=== PATIENT | female | born 1985 | race Two or more races ===

== ENCOUNTER 2020-02-23 20:29 | Emergency (ER) | payer OTHER ==
[~2020-02-23] VITALS: Ht 170.2 cm; Wt 81.6 kg
[2020-02-23] MEDS ORDERED: METF-440 GT (21:07)
[2020-02-23] MEDS ORDERED: ATOR80TA26 GT (21:07)
[2020-02-23] MEDS ORDERED: DULO60CA45 GT (21:07)
[2020-02-23] MEDS ORDERED: RIVA20TA GT (21:07)
[2020-02-23] MEDS ORDERED: LAMO250T2 GT (21:07)
[2020-02-23] MEDS ORDERED: [UNRECOGNIZED DRUG - REMARK] (21:07)
[2020-02-23] MEDS ORDERED: GABA600T GT (21:07)
[2020-02-23] MEDS ORDERED: POLY17PO4 GT (21:07)
[2020-02-23] MEDS ORDERED: REGULAR INSULIN (21:07)
[2020-02-23] MEDS ORDERED: LORA2TAB GT (21:07)
[2020-02-23] MEDS ORDERED: QUET300T2 GT (21:07)
[2020-02-23] MEDS ORDERED: [UNRECOGNIZED DRUG - OTHER] (21:07)
[2020-02-23] MEDS ORDERED: FAMO40TA71 GT (21:07)
[2020-02-23] MEDS ORDERED: ONDANSETRON ODT 4 MG TAB.RAPDIS SL ONE (21:30)
[2020-02-23] MEDS ORDERED: HYDROCODONE/APAP 10-325 MG TABLET PO ONE (21:30)
--- NOTE | 2020-02-23 21:36 | NUR ---
PT TO RADIALOGY
[2020-02-23] MEDS ORDERED: HYDROCODONE/APAP 10-325 MG TABLET ONE (21:38)
[2020-02-23] MEDS ORDERED: ONDANSETRON ODT 4 MG TAB.RAPDIS ONE (21:38)
[2020-02-23] MEDS ORDERED: ONDANSETRON 4 MG/2 ML VIAL IM ONE (22:00)
[2020-02-23] MEDS ORDERED: HYDROMORPHONE 1 MG/1 ML DISP.SYRIN IM ONE (22:00)
[2020-02-23] MEDS ORDERED: HYDROMORPHONE 1 MG/1 ML DISP.SYRIN ONE (22:06)
[2020-02-23] MEDS ORDERED: ONDANSETRON 4 MG/2 ML VIAL ONE (22:06)
--- NOTE | 2020-02-23 22:17 | NUR ---
patient unable to desiree PO medication, MD switched medication to IM route
--- NOTE | 2020-02-23 22:17 | NUR ---
urine sample sent to lab at this time
[2020-02-23 22:18] LABS: *BILIRUBIN,URIN NEGATIVE (NEGATIVE); *BLOOD, URINE NEGATIVE (NEGATIVE); *CLARITY,URINE CLEAR (CLEAR); *COLOR,URINE YELLOW (YELLOW); *KETONES,URINE NEGATIVE (NEGATIVE); *UROBILINOGEN,URINE 0.2 E.U./dl (NORMAL); LEUKOCYTE ESTERASE ,URINE 1+ (NEGATIVE); NITRITE, URINE NEGATIVE (NEGATIVE); UGLUCOSE NEGATIVE (NEGATIVE)
--- NOTE | 2020-02-23 22:20 | NUR ---
PT VIA W/C TO ULTRASOUND EXAM ROOM AT [facility].
[2020-02-23 22:24] LABS: *URINE HCG, QUAL NEGATIVE (NEGATIVE)
[2020-02-23] MEDS ORDERED: DIATR MEGLU/DIATRIZOATE SODIUM 30 ML BOTTLE PO ONE (23:15)
[2020-02-23 23:24] LABS: BASOPHILS % (AUTO) 0.6 % (0.0-2.0); EOSINOPHILS # (AUTO) 0.1 K/uL (0.0-0.7); EOSINOPHILS % (AUTO) 1.1 % (0.0-7.0); HEMATOCRIT 34.5 % (31.2-41.9); HEMOGLOBIN 11.7 g/dL (10.9-14.3); LYMPHOCYTES # (AUTO) 3.1 K/uL (20.0-40.0); LYMPHOCYTES % (AUTO) 39.9 % (20.5-51.5); MEAN CORPUSCULAR HEMOGLOBIN 29.9 uug (24.7-32.8); MEAN CORPUSCULAR HGB CONC 34 g/dL (32.3-35.6); MONOCYTES # (AUTO) 0.3 K/uL (2.0-10.0); NEUTROPHILS # (AUTO) 4.2 K/uL (1.8-8.9); NEUTROPHILS % (AUTO) 54.4 % (38.5-71.5); PLATELET COUNT (AUTO) 277 K/uL (179-408); RED BLOOD CELL COUNT(AUTO) 3.92 MIL/uL (3.63-4.92); WHITE BLOOD COUNT (AUTO) 7.8 K/uL (3.8-11.8)
[2020-02-23 23:26] LABS: CREATININE 0.9 mg/dL (0.6-1.3); POTASSIUM 3.7 mmol/L (3.5-5.1)
[2020-02-23 23:32] LABS: BILIRUBIN,DIRECT 0.1 mg/dL (0.0-0.2); BILIRUBIN,TOTAL 0.2 mg/dL (0.2-1.0); TOTAL PROTEIN, SERUM 8.8 g/dL (6.4-8.2)
[2020-02-23 23:50] LABS: RBC,URINE 0-3 /HPF (0-3)
[2020-02-23 23:51] LABS: BACTERIA,URINE NONE SEEN /HPF (NONE SEEN); SQUAMOUS EPITHELIAL CELL,UR FEW /HPF (NONE SEEN); URINE AMORPHOUS URATE FEW /HPF
[2020-02-24] MEDS ORDERED: HYDROMORPHONE 1 MG/1 ML DISP.SYRIN IM ONE
[2020-02-24] MEDS ORDERED: HYDROMORPHONE 1 MG/1 ML DISP.SYRIN ONE (00:12)
--- NOTE | 2020-02-24 00:12 | NUR ---
MSE COMPLETED, PT RECEIVED DILUADID IM STATED SHE CALLED FOR A RIDE, PT ALSO D/C'D HOME, ACI/RX X2 GIVEN. PT AMBULATED W/O DIFF/TOOK ALL BELONGINGS.
[2020-02-24 00:14] VITALS: BP 121/82
== END 2020-02-24 00:14 | disposition home or self-care (01) ==
LOC: ER 20:32
DX: R10.13 Epigastric pain (principal); G89.4 Chronic pain syndrome; Z93.1 Gastrostomy status; E11.43 Type 2 diabetes mellitus with diabetic autonomic (poly)neuropathy; K31.84 Gastroparesis; Z79.4 Long term (current) use of insulin; F31.9 Bipolar disorder, unspecified; F41.9 Anxiety disorder, unspecified; Z79.899 Other long term (current) drug therapy; E78.1 Pure hyperglyceridemia
CPT/HCPCS: 36415; 71045; 74176; 76705; 80048; 80061; 80076; 81001; 83690; 84703; 85025; 87086; 93005; 96372 ×2; 99285; J1170 ×2; J2405; Q0162